=== PATIENT | female | born 1995 | race Caucasian/White ===

== ENCOUNTER 2025-07-31 09:48 | Outpatient (AMB) | payer OTHER, SELFPAY ==
--- NOTE | 2025-07-31 09:59 | A.OFFPC_ITS ---
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 Patient is requesting a referral for a feet doctor and ENT. 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 - [facility] PCP records rec'd and reviewe d. She reports progressive dryness of feet with a familial history, with bothersome dryness symptoms; has tried OTC creams w/o relief. would like to see podiatry. [facility] referral placed. - She experiences challenges in weight r eduction since childbirth with a noted BMI of 37 due to obesity. Lifestyle mods encouraged. - cochlear implant on R; wants to get on L. Managed by ENT. Needs new referral placed. UTD on vaccines. - anxiety are contributory to weight issues and are discussed as current factors affecting her health status. Needs help w/ therapist. Declined meds. Refer to [facility] for counseling. Denies SI HI - BP elevated upon recheck. Denies HTN. Admits stress here w 2 yr old son who is crying during the exam. - Hx of anemia, not taking Iron or suppl ements. Family History - Obesity (Mother) - Hypertension (Mother) - Prostate cancer (Father) - Various unspecified cancers (Father?s family) - Hypercholesteremia (Family history) Social History - , with a son under 2 years old. 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 - Healthy diet, avoids sugar. - No substance use was discussed. Health Maintenance - Up to date with tetanus vaccination. - Pap smear conducted in 2022. - No recent anomalies in menstrual cycle s post-childbirth. Review of Systems - General: Reports difficulty in weight loss. - Ears: Hearing loss with cochlear impla nt. - Dermatological: Reports dry skin on fe et. - Psychiatric: Reports anxiety and depre ssion . Physical Exam General: Well developed, well nourished, in no acute distress. Appears stated age. Head: Normocephalic, atraumatic. Eyes: Pupils are equal, round and reactive to light and accommodation. Conjunctivae are clear. Vision grossly normal. Ears: Status post cochlear implant. TMs clear AU, EACS WNL. Nose: Patent, without discharge. Neck: Supple, no adenopathy or thyromegaly. Breast: Edu on SBE Lungs: Clear to auscultation bilaterally. No rales, rhonchi or wheeze noted. Good air flow in all roper. Heart: Regular rate and rhythm. No murmurs, click, rubs or gallops are noted. Abdomen: Bowel sounds present in all quadrants. The abdomen is soft, nontender, with no masses or organomegaly noted. No hernias are noted. : Deferred. Reviewed recommendations for routine SEMICONDUCTOR LAB TECHNICIAN. Pulses: Peripheral pulses are equal and palpable bilaterally. Extremities: No clubbing, cyanosis nor edema is noted. Patient reports dry skin on feet. Neurologic: Gait and station normal. Cranial Nerves 2-12 intact. Motor strength grossly symmetrical and intact. No sensory loss. Balance normal. Skin: No rashes, ulcers, or lesions noted. Turgor is good. Skin color is good. Hair and nails are without abnormalities. Skin to feet is dry, cracked and calloused. Psych: Normal eye contact, affect and mood appropriate, and normal interactions. Patient is alert and appropriate to context. Results See below Discussion Notes During our discussion, I explained to the patient the importance of managing her foot health and provided a referral to a property specialist for a comprehensive examination and potential management of her foot dryness. I also reinforced that depression and her current weight issues might be alleviated with counseling support, to which she consented for a referral. We discussed the patient's iron deficiency anemia. I advised on the utility of patient portals for direct communication and stressed on accessing lab results online once processed. Patient was given time to ask questions. All questions were answered to their satisfaction. Assessment and Plan 1. Foot Dryness - Referral to property specialist for manage ment. 2. Obesity - Continue nutritional plan and monitor weight. 3. Iron Deficiency Anemia - Labs cont to show mild Iron def anemia ; recommend daily MVI with Iron OTC. 4. Depression and Anxiety - Referral for counseling set. - offered and declined propanolol 5. Hearing Loss Status Post Cochlear Imp lant - ENT referral placed. 6. Borderline elevated BP, may be d/t st ress. Monitor @ home. If cont to be > goal will need to consider meds. Likely a BB to help w/ her anxiety. Declined today. Patient Instructions - Schedule appointment with the foot spe cialist as soon as contacted. - Continue practicing a healthy diet acc ording to current guidelines. - Utilize portal for lab results and com munication. - Arrange for counseling as planned. - Start OTC MVI + Iron - Monitor BP - Return to office 1 year CPE, sooner as needed. Consent Patient was informed and verbally consented to the use of an ambient scribe for clinic note documentation during this visit. An additional 30 minutes was spent addressing the problem(s) noted at todays visit. This includes time spent before the visit reviewing the chart, time spent during the visit, and time spent after the visit on documentation reviewing laboratory results, diagnostic imaging, medications, performing a medically necessary evaluation, counseling on diagnoses, care coordination, ordering appropriate tests, ordering appropriate medications, review of tests performed by other providers, reporting test results with the patient, communication with other healthcare providers. 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 1. Little interest or pleasure in doing things: not at all 2. Feeling down, depressed, or hopeless: not at all 3. Trouble falling or staying asleep, or sleeping too much: not at all 4. Feeling tired or having little energy: not at all 5. Poor appetite or overeating: not at all 6. Feeling bad about yourself - or that you are a failure or have let yourself or your family down: not at all 7. Trouble concentrating on things, such as reading the newspaper or watching television: not at all 8. Moving or speaking so slowly that other people could have noticed. Or the opposite - being so fidgety or restless that you have been moving around a lot more than usual: not at all 9. Thoughts that you would be better off or of hurting yourself in some way: not at all Total score: 0 Depression Screening Interpretation: Negative Depression Screening Done: Yes 14565 - PHQ-9 Billing: Yes Source: Developed by Drs. Kenyon Oviedo, Enriqueta Gao, Barney Garsia and colleagues, with an educational clare from [employer]. Thrive Questionnaire Date Thrive assessed: 07/31/25 I am a: Patient What is your living situation today?: I have a steady place to live Within the past 12 months, did the food you bought not last and you didn't have the money to get more?: Sometimes True Within the past 12 months, did you worry whether your food would run out before you got money to buy more?: Sometimes True Do you have trouble paying for medicines?: No Do you have trouble getting transportation to medical appointments?: No Do you have trouble paying your heating and electricity bill?: No Do you have trouble taking care of your child, family member or friend?: No Do you have trouble with day-to-day activities such as bathing, preparing meals, shopping, managing finances, etc.?: No Are you currently unemployed and looking for a job?: No Are you interested in more education?: No Please select the resources that you would like help with: None Currently or been in a relationship where the following occur: No concerns reported THRIVE Score: 2 AUDIT C Alcohol Use Questionnaire (AUDIT-C) 1. How often do you have a drink containing alcohol?: Never 3. How often do you have six or more drinks on one occasion?: Never Total Score: 0 Score Reviewed/Action Taken: Yes LENNIE-7 AMB Questionnaire LENNIE-7 Date LENNIE - 7 assessed: 07/31/25 Feeling nervous, anxious, or on edge: 1 = Several days Not being able to stop or control worryin = Several days Worrying too much about different things: 1 = Several days Trouble relaxin = Several days Being so restless that it is hard to sit still: 1 = Several days Becoming easily annoyed or irritable: 0 = Not at all Feeling afraid as if something awful might happen: 0 = Not at all Total LENNIE-7 score (0-4 normal; 5-9 mild; 10-14 moderate; 15-21 severe): 5 Source: Developed by Drs. Kenyon Oviedo, Enriqueta Gao, Barney Garsia and colleagues, with an educational clare from [employer]. LENNIE-7 Assessment Billing LENNIE-7 Assessment Tool: LENNIE-7 Assessment 88442 Physical exam (Primary Care) Vital Signs: Last Vital Signs Temp 97.1 F 07/31/25 10:10 Pulse 91 07/31/25 10:41 Resp 13 07/31/25 10:10 BP 138/88 07/31/25 10:41 Pulse Ox 99 07/31/25 10:10 Oxygen Delivery Method Room Air 07/31/25 10:10 BMI result Body Mass Index 37.8 BMI Assessment/Plan discussion: High BMI High, discussed plan: lifestyle Tobacco/Smoking Status: Tobacco use Status Tobacco use date assessed 07/31/25 07/31/25 10:04 Patient Tobacco Use Status Never used Tobacco 07/31/25 10:04 e-Cigarette/Vaping Use Never Used 07/31/25 10:04 PHQ-9: PHQ-9 Score PHQ-9: Total score 0 07/31/25 10:20 Depression Screening Interpretation: Negative Thrive Assessment: Date of Thrive Assessment Date Thrive assessed 07/31/25 07/31/25 10:04 Currently or been in a relationship where the following occur: No concerns reported Results Reviewed Results Reviewed: Laboratory 07/31/25 Result Units Range Interpretation Provider Comments White Blood Count 7.9 X10*3/uL (4.8-10.8) Red Blood Count 4.78 X10*6/uL (4.20-5.50) Hemoglobin 12.2 g/dl (12.0-16.0) Hematocrit 37.5 % (37.0-47.0) Mean Corpuscular Volume 78.5 fL (80.0-98.0) Low Mean Corpuscular Hemoglobin 25.5 pg (27.0-33.0) Low Mean Corpuscular Hemoglobin Concent 32.5 g/dl (31.0-35.0) Red Cell Distribution Width 15.3 % (11.0-16.0) Platelet Count 429 X10*3/uL (160-400) High Mean Platelet Volume 9.3 fL (9.4-12.3) Low Nucleated RBC Absolute Count (auto) 0.000 X10*3/uL (0.0-0.012) Nucleated Red Blood Cells % (auto) 0.0 /100WBC (0.0-0.2) Sodium Level 139 mmol/L (135-145) Potassium Level 4.2 mmol/L (3.3-5.1) Chloride Level 108 mmol/L (96-108) Carbon Dioxide Level 25 mmol/L (22-29) Anion Gap 10 (12-20) Low Blood Urea Nitrogen 15 mg/dL (9-16) Creatinine 0.97 mg/dL (0.5-1.4) Estimated Creatinine Clearance Calc Not Reportable Estimat Glomerular Filtration Rate > 60 Random Glucose 87 mg/dL (60-115) Estimated Average Glucose 117 mg/dL Hemoglobin A1c Percent 5.7 % (<6.0) Calcium Level 9.2 mg/dL (8.4-10.2) Total Bilirubin 0.4 mg/dL (0.0-1.0) Aspartate Amino Transf (AST/SGOT) 23 U/L (5-31) Alanine Aminotransferase (ALT/SGPT) 22 U/L (0-31) Alkaline Phosphatase 87 U/L (39-117) Total Protein 7.2 g/dL (6.5-8.0) Albumin 4.5 g/dL (3.5-5.0) Triglycerides Level 82 mg/dL (<150) Cholesterol Level 162 mg/dL (<200) LDL Cholesterol, Calculated 97 mg/dL (<100) HDL Cholesterol 49 mg/dL (>40) Vitamin B12 Level 530 pg/mL (200-900) 25-Hydroxy Vitamin D Total 47.3 ng/mL (>30) Folate 13.2 ng/mL (> or = 4.0) Thyroid Stimulating Hormone (TSH) 0.98 uIU/mL (0.32-4.0) Urine Creatinine 62.24 mg/dL Urine Microalbumin < 5.0 mg/L Urine Microalbumin/Creatinine Ratio TNP Coding Level of Care Code New Pt Level 3 (25175) New Pt Prev Care 18-39yr(95967 Diagnoses Encounter to establish care with new provider Z76.89 Obesity (BMI 30-39.9) E66.9 Callus L84 Co[address] Z96.21 Bilateral hearing loss, unspecified hearing loss type H91.93 Hearing loss type: unspecified Other iron deficiency anemia D50.8 Iron deficiency anemia type: other iron deficiency Elevated blood pressure reading without diagnosis of hypertension R03.0 anxiety O99.345; F41.8 Encounter for general adult medical examination without abnormal findings Z00.00 Laboratory exam ordered as part of routine general medical examination Z00.00 Additional Codes LENNIE-7 Assessment Billing - LENNIE-7 Assessment Tool: LENNIE-7 Assessment 22299 ([id number]) PHQ-9 - 62979 - PHQ-9 Billing: Yes ([id number]) Assessment & Plan Assessment & Plan (1) Encounter to establish care with new provider: Code(s): Z76.89 - Persons encountering health services in other specified circumstances (2) Obesity (BMI 30-39.9): Code(s): E66.9 - Obesity, unspecified Category: Medical (3) Callus: Code(s): L84 - Corns and callosities Category: Medical (4) Cochlear implant in place: Code(s): Z96.21 - Cochlear implant status Category: Medical (5) Hearing loss, bilateral: Code(s): H91.93 - Unspecified hearing loss, bilateral Category: Medical Qualifiers: Hearing loss type: unspecified Qualified Code(s): H91.93 - Unspecified hearing loss, bilateral (6) Iron deficiency anemia: Code(s): D50.9 - Iron deficiency anemia, unspecified Category: Medical Qualifiers: Iron deficiency anemia type: other iron deficiency Qualified Code(s): D50.8 - Other iron deficiency anemias (7) Elevated blood pressure reading without diagnosis of hypertension: Code(s): R03.0 - Elevated blood-pressure reading, without diagnosis of hypertension Category: Medical (8) anxiety: Code(s): O99.345 - Other mental disorders complicating the puerperium; F41.8 - Other specified anxiety disorders Category: Medical (9) Encounter for general adult medical examination without abnormal findings: Onset Date: ~07/31/25 Code(s): Z00.00 - Encounter for general adult medical examination without abnormal findings Category: Medical (10) Laboratory exam ordered as part of routine general medical examination: Code(s): Z00.00 - Encounter for general adult medical examination without abnormal findings Category: Medical Plan . Orders: Orders Complete Blood Count no Diff Today Z00.00 - Encounter for general adult medical examination without abnormal findings Comprehensive Met. Panel Today Z00.00 - Encounter for general adult medical examination without abnormal findings Hemoglobin A1c Today Z00.00 - Encounter for general adult medical examination without abnormal findings Lipid Panel Today Z00.00 - Encounter for general adult medical examination without abnormal findings Microalbumin, Random (w Creat) Today Z00.00 - Encounter for general adult medical examination without abnormal findings TSH reflex Free T4 Today Z00.00 - Encounter for general adult medical examination without abnormal findings Vitamin B12 and Folate Today Z00.00 - Encounter for general adult medical examination without abnormal findings Vitamin D 25-OH Total Today Z00.00 - Encounter for general adult medical examination without abnormal findings Referrals Podiatry Referral L84 - Corns and callosities Ear/Nose/Throat Referral H91.93 - Unspecified hearing loss, bilateral, Z96.21 - Cochlear implant status Nurse Navigator Referral F41.1 - Generalized anxiety disorder Patient Instructions: Walk-In Care (Urgent Care): We Make it Easy Walk-in for urgent medical issues such as: ? Seasonal Allergies ? Insect Bites ? Cough ? Diarrhea ? Acute Asthma Attacks ? Back, Knee or Joint Pain ? Ear Infection ? Fever without a Rash ? Headaches ? Nausea ? Slaughter Eye, Rash or Skin Irritation ? Sore Throat ? Sports Physicals ? Vomiting Most insurances are accepted. Patients do not need to be part of the [facility] to seek care at the walk-in clinic. Locations [address] [facility] [place] [address] ? [phone] [facility] in [place] provides services to ages 18 and over. Open Tuesday-Tuesday: 7 a.m. to 5 p.m. and Tuesday: 9 a.m. to 3 p.m.* *Hours may vary due to staffing availability. To confirm Walk-In Care hours in [place], please call [phone]. [address] [place] [address] ? [phone] [facility] in [place] provides services to ages 12 and over. Open Tuesday-Tuesday: 8 a.m. to 5 p.m. Hours may vary due to staffing availability. To confirm Walk-In Care hours in [place], please call [phone]. LABORATORY SERVICES: [facility] Lab ? Primary Location [address] [place] [address] Tuesday through Tuesday 6:00 AM ? 5:00 PM Tuesday 7:00 AM ? 11:00 AM* [phone] The [facility] Lab is centrally located near the front entrance of the [facility] for easy outpatient access. Convenient parking is provided for outpatients. *Hours may vary due to staffing availability. To confirm Laboratory hours for any location, please call [phone]. Offsite Location For your convenience, we offer offsite laboratory draw stations at the following locations: [address] [place] [address] ? [address], [address] Tuesday through Tuesday 7:30 AM ? 1:00 PM* [phone] *Hours may vary due to staffing availability. To confirm Laboratory hours for any location, please call [phone]. [place] [address], [place] Tuesday through Tuesday 6:00 AM ? 3:30 PM* Tuesday 6:30 AM ? 3 PM* [phone] *Hours may vary due to staffing availability. To confirm Laboratory hours for any location, please call [phone]. [address] [facility] Tuesday through Tuesday 7:30 AM ? 4:00 PM* [phone] *Hours may vary due to staffing availability. To confirm Laboratory hours for any location, please call [phone]. [address] [facility] Tuesday through 9:00 AM ? 4:00 PM* *Hours may vary due to staffing availability. To confirm Laboratory hours for any location, please call [phone]. Appointments are not necessary. Walk-ins are welcome. Like all the departments throughout the [facility], our Lab undergoes frequent reviews to ensure the quality and accuracy of test results, and our staff takes special pride in its status as a nationally accredited facility. Patient Portal: [facility] ONE PATIENT. ONE RECORD. BETTER CARE. [facility] has a fully integrated, cutting- edge mobile electronic health information system that has revolutionized the way we care for our patients and manage our organization. This system improves communication and coordination enabling us to provide safe, higher-quality care, and an overall positive experience for staff and patients. Our first priority, as always, is to deliver the highest quality care possible. The system is running in the background supporting that priority. This portal is for all [facility] services and practices. If you are experiencing any technical difficulties with enrolling or logging into the Patient Portal please complete the [facility] Patient Portal Technical Support Form. [facility] now offers a new secure on-line interactive tool for patients to review their health information ? ?Patient Portal. This interactive web portal will enable patients and their families to take an active role in their care by providing easy, secure access to their health information via the internet. The Patient Portal provides patients with instant access to their health information, including laboratory results, medications, allergies, demographic information, visit history, and more. In addition to managing their own care, parents and health care proxies with authorized consent will appreciate the ability to access the records of those individuals for whom they provide care. Please note: if you wish to gain access (Proxy) to another patient?s portal, you will be required to come to the Medical Records Department in person at [facility]. Both the patient giving proxy access and the proxy will need to provide photo identification and complete the appropriate authorization. The Patient Portal also allows track their appointments online. The [facility] Patient Portal also saves patients time by allowing them to submit updates to their demographic and contact information prior to their visits. Portal email notifications will also alert patients to any new activity on their portal, such as test results and new appointments. In order to initially enroll in the [facility] Patient Portal, you will need to enter some required information including the following: * your [facility] Medical Record number * your personal home email address * name * date of Please note: In order to enroll in the [facility] Patient Portal, we need to have you r email address on file in your electronic medical record. ?The email address needs to be specific for one person (yourself) in order for your Portal enrollment to be successful. ?You can update your email address in person with our Registration staff when you are registering for a hospital visit. ?Otherwise, you will need to come to the Health Information Management (Medical Records) Department at [facility]. ?We are open from Tuesday ? Tuesday from 7:30 a.m. ? 4:30 p.m. ?You will be required to present a photo id. Once you have successfully enrolled in the Patient Portal, you will receive a one-time user id and password for the Portal, sent to your email address. ?This will allow you to log into the Patient Portal within 99 hrs and reset your own logon id and password, and define personal security questions. ?Once your permanent login and password have been set, you can log into the [facility] Patient Portal at any time via the blue button above or from the Portal Logon button on any page of the [facility] website. [facility] encourage all of our patients to enroll in Patient Portal as it presents a valuable opportunity for patients and their families to actively participate in their care and stay healthy Welcome to [facility]. ?We look forward to working with you. Health screenings for women You should visit your health care provider from time to time, even if you are healthy. The purpose of these visits is to: Screen for medical issues Assess your risk for future medical problems Encourage a healthy lifestyle Update vaccinations and other preventive care services Help you get to know your provider in case of an illness Information Even if you feel fine, you should still see your provider for regular checkups. These visits can help you avoid problems in the future. For example, the only way to find out if you have high blood pressure is to have it checked regularly. High blood sugar and high cholesterol levels also may not have any symptoms in the early stages. A simple blood test can check for these conditions. There are specific times when you should see your provider or receive specific health screenings. The [place] Preventive Services Task Force publishes a list of recommended screenings. Below are screening guidelines for women ages 18 to 39. BLOOD PRESSURE SCREENING Your blood pressure should be checked at least once every 3 to 5 years if: Your blood pressure is in the normal range (top number less than 120 mm Hg and bottom number less than 80 mm Hg) You don't have risk factors for high blood pressure Ask your provider if you need your blood pressure checked more often if: The top number is 120 to 129 mm Hg or the bottom number is 70 to 79 mm Hg You have diabetes, heart disease, kidney problems, are overweight, or have certain other health conditions You have a first-degree relative with high blood pressure You are Black You had high blood pressure during a If the top number is 130 mm Hg or greater or the bottom number is 80 mm Hg or greater, this is considered stage 1 hypertension. Schedule an appointment with your provider to learn how you can reduce your blood pressure. Watch for blood pressure screenings in your area. Ask your provider if you can stop in to have your blood pressure checked. BREAST CANCER SCREENING Experts do not agree about the benefits of breast self-exams in finding breast cancer or saving lives. Talk to your provider about what is best for you. A screening mammogram is not recommended for most women under age 40. Your provider may discuss and recommend mammograms, MRI scans, or ultrasounds if you have an increased risk for breast cancer, such as: A mother or sister who had breast cancer at a young age (most often starting screening earlier than the age the close relative was diagnosed) You carry a high-risk genetic marker CERVICAL CANCER SCREENING Cervical cancer screening should start at age 21 years unless your provider advises otherwise. After the first test: Women ages 21 through 29 should have a Pap test every 3 years. Exoprts do not agree on whether HPV testing is recommended for this age group. Women ages 30 through 65 should be screened with either a Pap test every 3 years or the HPV test every 5 years or both tests every 5 years (called cotesting ). Women who have been treated for precancer (cervical dysplasia) should continue to have Pap tests for 20 years after treatment or until age 65, whichever is longer. If you have had your uterus and cervix removed (total hysterectomy), and you have not been diagnosed with cervical cancer or precancer (high grade cervical neoplasia), you do not need cervical cancer screening. CHOLESTEROL SCREENING Cholesterol screening should begin at: Age 45 for women with no known risk factors for coronary heart disease Age 20 for women with known risk factors for coronary heart disease Repeat cholesterol screening should take place: Every 5 years for women with normal cholesterol levels More often if changes occur in lifestyle (including weight gain and diet) More often if you have diabetes, heart disease, kidney problems, or certain other conditions DIABETES SCREENING You should be screened for diabetes starting at age 35 and then repeated every 3 years if you have no risk factors for diabetes. Screening may need to start earlier and be repeated more often if you have other risk factors for diabetes, such as: You have a first degree relative with diabetes. You are overweight or have obesity. You have high blood pressure, prediabetes, or a history of heart disease. Screening for diabetes should be done if you are planning to become and you are overweight and have other risk factors such as high blood pressure. DENTAL EXAM Go to the dentist once or twice every year for an exam and cleaning. Your dentist will evaluate if you need more frequent visits. EYE EXAM Have an eye exam every 5 to 10 years before age 40. If you have vision problems, have an eye exam every 2 years or more often if recommended by your provider. You should have an eye exam that includes an examination of your retina (back of your eye) at least every year if you have diabetes. IMMUNIZATIONS Commonly needed vaccines include: Flu shot: get one every year. COVID-19 vaccine: ask your provider what is best for you. Tetanus-diphtheria and acellular pertussis (Tdap) vaccine: have one at or after age 19 as one of your tetanus-diphtheria vaccines if you did not receive it as an adolescent. Tetanus-diphtheria: have a booster (or Tdap) every 10 years. Varicella vaccine: receive 2 doses if you never had chickenpox or the varicella vaccine. Hepatitis B vaccine: receive 2, 3, or 4 doses, depending on your exact circumstances. Measles, mumps, and rubella (MMR) vaccine: receive 1 to 2 doses if you are not already immune to MMR. Your provider can tell you if you are immune. Ask your provider about the human papillomavirus (HPV) vaccine if: You have not received the HPV vaccine in the past You have not completed the full vaccine series (you should catch up on this shot) Ask your provider if you should receive other immunizations if you have certain health problems that increase your risk for some diseases such as pneumonia. INFECTIOUS DISEASE SCREENING Women who are sexually active should be screened for chlamydia and gonorrhea up until age 25. Women 25 years and older should be screened for chlamydia and gonorrhea if at high risk. Screening for hepatitis C: All adults ages 18 to 79 should get a one-time test for hepatitis C. people should be screened at every . Screening for human immunodeficiency virus (HIV): All people ages 15 to 65 should get a one-time test for HIV. Depending on your lifestyle and medical history, you may also need to be screened for infections such as syphilis and HIV, as well as other infections. PHYSICAL EXAM All adults should visit their provider from time to time, even if they are healthy. The purpose of these visits is to: Screen for disease Assess your risk of future medical problems Encourage a healthy lifestyle Update your vaccinations and other preventive care services Maintain a relationship with a provider in case of an illness Your height, weight, and BMI should be checked at every exam. During your exam, your provider may ask you about: Depression and anxiety Diet and exercise Alcohol and tobacco use Safety issues, such as using seat belts, smoke detectors, and intimate partner violence Your medicines and risk for interactions SKIN SELF-EXAM Your provider may check your skin for signs of skin cancer, especially if you're at high risk, such as if you: Have had skin cancer before Have close relatives with skin cancer Have a weakened immune system OTHER SCREENING Talk with your provider about colon cancer screening if you have a strong family history of colon cancer or polyps, or if you have had inflammatory bowel disease or polyps yourself. Routine bone density screening of women under 40 is not recommended. National Suicide and Crisis Lifeline: Available 24 hours a day, 7 days a week, 365 days a year Dial 988 with any telephone to speak to someone immediately [address] [address] , Walk ins [facility] (Mental / Behavioral health therapist: [address], [place] [phone] [facility] at [facility]: [address] [place] [address] Open from 10am - 12pm (walk ins [place]) [facility] Crisis Services: [address] [place] [address] Walk in hours from 10am - 12pm Behavioral health Network: [address] [place] [address] [place] [id number] Tuesday through Tuesday 8am - 8pm Tuesday and Tuesday 9am - 5pm Crisis Hotlines Suicide prevention, domestic violence, and other crisis hotlines for youth, young adults, and their friends and families. National Runaway Safeline: The National Runaway Safeline helps youth who have run away, are thinking about running away, or who already ran away but are ready to come home. Parents and guardians can also contact the hotline if they are worried about their child running away or if their child has already left home. The hotline is available 24 hours a day, seven days a week. Youth, parents, and guardians can also use the online chat feature on the Runaway Safeline's website to ask for help and get support, [place] [address]. National Runaway Safeline National Suicide Prevention Lifeline: The National Suicide Prevention Lifeline is a network of local crisis centers that are available 06/06 to provide support for youth and adults who are in any kind of emotional crisis. In addition to the main hotline number listed above, there are several other numbers to call depending on your needs: Citizen Of [place] Language: Deaf and Hard of Hearin7-597-982-1316 Veterans: Disaster Distress: Anyone can also use their online chat feature on their website. National Suicide Prevention Lifeline [facility] Helpline: The [facility] Helpline is available to anyone in [place] who is need of emotional support. Anyone can call or text the helpline to receive help from specially trained volunteers. [place] high school and college students can also get online support through the IMHear_ program. For high school students, volunteers ages 15-18 are available Tuesday- from 6-9PM. For college students, IMHear_ is available Tuesday-Tuesday from 5-9PM. The David Project - The David Project is a 06/06 crisis intervention and suicide prevention hotline for LGBTQ youth. Youth can also text David to for support, or use the online chat feature on the David Project's website. TrevorText is available Tuesday-Tuesday between 3-10PM. TrevorChat is available seven days a week between 3-10PM. SafeLink: SafeLink is for anyone who is being affected by domestic violence or dating violence. Volunteers at SafeLink speak Italian and Citizen Of [place], and SafeLink also has a service that can provide translation in more than 130 languages. TTY:
[2025-07-31 10:10] VITALS: BP 142/78; PULSE 113; RESP 13; TEMP 36.2; O2SAT 99; BMI 37.8
[2025-07-31 10:41] VITALS: BP 138/88; PULSE 91
== END 2025-07-31 10:52 | disposition home or self-care (01) ==
LOC: HO.HMCFM 09:49
PROVIDERS: PCP Nurse Practitioner Family; Visit Provider Nurse Practitioner Family
DX: Z00.00 Encounter for general adult medical examination without abnormal findings (principal); H91.93 Unspecified hearing loss, bilateral; E66.9 Obesity, unspecified; Z68.37 Body mass index [BMI] 37.0-37.9, adult; Z96.21 Cochlear implant status; Z76.89 Persons encountering health services in other specified circumstances; L84 Corns and callosities; D50.8 Other iron deficiency anemias; R03.0 Elevated blood-pressure reading, without diagnosis of hypertension; O99.345 Other mental disorders complicating the puerperium; F41.8 Other specified anxiety disorders

== ENCOUNTER 2025-07-31 09:48 | Outpatient (REF) | payer OTHER, SELFPAY ==
[2025-07-31 14:32] LABS: Hematocrit 37.5 % (37.0-47.0); Hemoglobin 12.2 g/dl (12.0-16.0); Mean Corpuscular HGB Conc 32.5 g/dl (31.0-35.0); Mean Corpuscular Hemoglobin 25.5 pg (27.0-33.0); Mean Corpuscular Volume 78.5 fL (80.0-98.0); NRBC Abs Auto 0.000 X10*3/uL (0.0-0.012); NRBC Pct Auto 0.0 /100WBC (0.0-0.2); Platelet Count 429 X10*3/uL (160-400); Red Blood Count 4.78 X10*6/uL (4.20-5.50); White Blood Count 7.9 X10*3/uL (4.8-10.8)
[2025-07-31 14:39] LABS: Hemoglobin A1C 122.4886 umol/L
[2025-07-31 14:55] LABS: Alanine Aminotransferase 22 U/L (0-31); Albumin Level 4.5 g/dL (3.5-5.0); Alkaline Phosphatase 87 U/L (39-117); Anion Gap 10 (12-20); Aspartate Amino Transferase 23 U/L (5-31); Blood Urea Nitrogen 15 mg/dL (9-16); Calcium 9.2 mg/dL (8.4-10.2); Carbon Dioxide 25 mmol/L (22-29); Chloride 108 mmol/L (96-108); Cholesterol 162 mg/dL (<200); Estimated Glomerular Filt Rate > 60; HDL Cholesterol 49 mg/dL (>40); Potassium 4.2 mmol/L (3.3-5.1); Sodium 139 mmol/L (135-145); Total Protein 7.2 g/dL (6.5-8.0); Triglycerides 82 mg/dL (<150)
[2025-07-31 15:19] LABS: Folate 13.2 ng/mL (> or = 4.0); Vitamin B12 530 pg/mL (200-900)
== END 2025-07-31 09:49 | disposition home or self-care (01) ==
LOC: HO.WFDLDS 09:48
PROVIDERS: PCP Nurse Practitioner Family; Visit Provider Nurse Practitioner Family
DX: Z00.00 Encounter for general adult medical examination without abnormal findings (principal); Z76.89 Persons encountering health services in other specified circumstances; O99.345 Other mental disorders complicating the puerperium; F41.8 Other specified anxiety disorders; D50.8 Other iron deficiency anemias; E66.9 Obesity, unspecified; L84 Corns and callosities; Z96.21 Cochlear implant status; H91.93 Unspecified hearing loss, bilateral; R03.0 Elevated blood-pressure reading, without diagnosis of hypertension; Z68.37 Body mass index [BMI] 37.0-37.9, adult
CPT/HCPCS: 36415; 80053; 80061; 82306; 82570; 82607; 82746; 83036; 84443; 85027; 96127; 99202; 99385

== ENCOUNTER 2025-09-18 11:18 | Outpatient (AMB) | payer OTHER, SELFPAY ==
--- NOTE | 2025-09-18 11:35 | MHC.OFFVIS ---
Vital Signs 09/18/25 11:49 Height 5 ft 4 in Weight 218 lb BMI 37.4 Intake Visit Reasons: Corns and callosities Intake Note: Amy is a 30 year old female who presents today as a new patient for an evaluation of her bilateral corns and callosities. She states this has been going on for over 3 months. Patient reports she has tried Epson salts, moisturizing and has found no relief for her symptoms Allergies No Known Allergies Allergy (Verified 09/18/25 11:36) Medication List - Last Reviewed 09/18/25 by RUPAL Chan HPI Comments Details: The patient is a 30-year-old female with a past medical history as seen below presenting with callus formation and dry skin on her feet. The issue began a few months ago and she noticed increased dryness of the skin causing fissures as well. The patient reports that the dryness is primarily located on the sides of her feet. She has not experienced any bleeding or pus from the area, and she has tried using [id number] lotion, which only made the oven drier tender. The patient frequently uses Epsom salt on her feet with no improvement. She does not wear heels and prefers sneakers and sandals, but she often walks barefoot at home. She denies any other pedal injuries or concerns at this time. [facility] Medical History (Updated 09/18/25 @ 11:32 by Ana Lilia Hernandez DPM) Other specified epidermal thickening Xerosis of skin Cochlear implant in place Surgical History (Updated 07/31/25 @ 10:15 by Catherine Boone MA) Previous section Family History (Updated 07/31/25 @ 10:21 by Catherine Boone MA) Mother HTN (hypertension) Father High cholesterol Cancer Social History (Updated 07/31/25 @ 10:00 by Catherine Boone MA) Housing: Apartment Alcohol intake: never Patient Tobacco Use Status: Never used Tobacco e-Cigarette/Vaping Use: Never Used Second Hand Smoke Exposure: No Current occupational status: employed 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 All systems reviewed & are unremarkable except as noted in HPI and below Physical Exam Extrem Other: Bilateral lower extremity focused physical exam: Derm: 4 Hyperkeratotic lesions in total noted bilaterally in the area of submetatarsal 1 and medial aspect of the 1st metatarsal head. No active bleeding drainage or purulence noted. No open wounds lesions or abrasions noted. No maceration noted. Toenails within normal limits. No ecchymosis or discoloration noted and no clinical signs of infection noted. Vascular: DP/PT pulses palpable. Capillary refill time less than 3 seconds. Temperature gradient warm to warm. No varicosities noted. No edema noted. Pedal hair present. Neuro: Protective sensation is grossly intact. MSK: No pain on palpation to the hyperkeratotic lesions noted. No crepitus or fluctuance noted. Mild hammertoe deformities noted. Nonantalgic unassisted gait noted. No other gross abnormalities noted. Office Procedures AMB Debridement/Avulsion Podia Details: Debrided 4 hyperkeratotic lesions in total to bilateral feet using a 15. Blade without any incidents.. 13639-Syyuwosmoam of Callus (2-4) Procedure code (CPT) selection complete Assessment & Plan Assessment & Plan (1) Callus: Code(s): L84 - Corns and callosities Category: Medical (2) Xerosis of skin: Code(s): L85.3 - Xerosis cutis Category: Medical (3) Other specified epidermal thickening: Code(s): L85.8 - Other specified epidermal thickening Category: Medical Plan Patient was informed and verbally consented to the use of an ambient scribe for clinic note documentation during this visit. I discussed with the patient the importance of moisturizing the feet to delay rate of reoccurrence of callus formation and dry skin. We also talked about the benefits of wearing slippers at home to reduce pressure on the feet. I advised a follow-up in three months to monitor the condition and adjust treatment as needed. - Prescribed ammonium lactate to be applied twice a day. - Debrided the hyperkeratotic lesions bilaterally using a 15. Blade. - Advised patient to avoid barefoot walking and to wear supportive shoe gear. RTC in 3 months. Orders: Orders AMB Debridement/Avulsion Podiatry Today L84 - Corns and callosities, L85.3 - Xerosis cutis, L85.8 - Other specified epidermal thickening Medications: New ammonium lactate 12% 1 appl topical BID 385 grams 1RF L84 - Corns and callosities, L85.3 - Xerosis cutis, L85.8 - Other specified epidermal thickening Coding Level of Care Code New Pt Level 3 (51735) Diagnoses Callus L84 Xerosis of skin L85.3 Other specified epidermal thickening L85.8 CPT Codes Skin Debridement - CPT: 35204-Mokkszmmbyu of Callus (2-4) ([id number]) Time Spent (min) 35 Comment 5 mins for procedure
[2025-09-18 11:49] VITALS: BMI 37.4
== END 2025-09-18 11:49 | disposition home or self-care (01) ==
LOC: HO.HPODS 11:19
PROVIDERS: PCP Nurse Practitioner Family; Visit Provider Student in an Organized Health Care Education/Training Program
DX: L84 Corns and callosities (principal); L85.3 Xerosis cutis; L85.8 Other specified epidermal thickening
CPT/HCPCS: 11056; 99203

== ENCOUNTER → 2025-09-18 11:18 | Outpatient (BNVA) | payer OTHER, SELFPAY | PROVIDERS: PCP Nurse Practitioner Family; Visit Provider Student in an Organized Health Care Education/Training Program | DX: L84 Corns and callosities (principal); L85.3 Xerosis cutis; L85.8 Other specified epidermal thickening | CPT/HCPCS: 11056; 99202 ==